=== PATIENT | female | born 1995 | race Caucasian/White ===

== ENCOUNTER 2016-08-10 17:31 | Emergency (ER) | payer OTHER | END 2016-08-10 23:19 | disposition home or self-care (01) | LOC: ER1 17:31 | DX: R55 Syncope and collapse (principal); F17.200 Nicotine dependence, unspecified, uncomplicated | CPT/HCPCS: 81001; 84703; 93005; 99284 ==

== ENCOUNTER 2022-01-13 16:26 | Emergency (ER) | payer OTHER ==
[~2022-01-13 16:26] MED LIST: BACTRIM DS TAB1 EACH PO; BACTROBAN NASAL1 G1 TOP; CEFUROXIME500 MG PO; IBUPROFEN600 MG PO; KEFLEX CAP 500500 MG PO; NORCO 5-325 TA1 EACH PO; SENOKOT-S TABL1 EACH PO
[2022-01-13] MEDS ORDERED: ULTRAM50 MG PO (20:07)
== END 2022-01-13 20:14 | disposition home or self-care (01) ==
LOC: ER1 16:26
DX: S80.212A Abrasion, left knee, initial encounter (principal); S80.211A Abrasion, right knee, initial encounter; S50.811A Abrasion of right forearm, initial encounter; V29.9XXA Motorcycle rider (driver) (passenger) injured in unspecified traffic accident, initial encounter; Y92.410 Unspecified street and highway as the place of occurrence of the external cause
CPT/HCPCS: 73564; 99283